=== PATIENT | female | born 1960 | race Caucasian/White ===

== ENCOUNTER 2017-11-02 13:01 | Emergency (ER) | payer BC ==
[~2017-11-02] VITALS: Ht 160 cm; Wt 81.7 kg
[2017-11-02] MEDS ORDERED: Prozac20 MG (13:43)
[2017-11-02] MEDS ORDERED: QVAR REDIHALE10.6 G1 (13:44)
[2017-11-02] MEDS ORDERED: ALBU90OI6 INH (13:44)
[2017-11-02] MEDS ORDERED: ACYC200 PO (13:44)
[2017-11-02] MEDS ORDERED: METPHE5 PO (13:45)
[2017-11-02] MEDS ORDERED: LIDO700A20 TOP (14:20)
[2017-11-02] MEDS ORDERED: METPRE4DP PO (14:20)
[2017-11-02] MEDS ORDERED: Pepcid20 MG PO (14:20)
[2017-11-02] MEDS ORDERED: Percocet 5-3251 EACH PO (14:25)
== END 2017-11-02 14:27 | disposition home or self-care (01) ==
LOC: ER 13:01
DX: G89.29 Other chronic pain (principal); M54.5 Low back pain; Z88.2 Allergy status to sulfonamides; Z88.5 Allergy status to narcotic agent; Z91.040 Latex allergy status; Z91.09 Other allergy status, other than to drugs and biological substances; Z79.899 Other long term (current) drug therapy; Z79.51 Long term (current) use of inhaled steroids
CPT/HCPCS: 96372; 99283; J1885

== ENCOUNTER → 2018-05-30 | Outpatient (CLI) | payer OTHER, BC ==
[~2018-05-30] MED LIST: ACYC200 PO; ALBU90OI6 INH; LIDO700A20 TOP; METPHE5 PO; METPRE4DP PO; Pepcid20 MG PO; Percocet 5-3251 EACH PO; Prozac20 MG; QVAR REDIHALE10.6 G1
== END | disposition home or self-care (01) ==
LOC: LAB 14:25 → LAB SHORT 14:25
DX: N39.0 Urinary tract infection, site not specified (principal)
CPT/HCPCS: 87086

== ENCOUNTER 2020-04-16 00:50 | Emergency (ER) | payer OTHER, BC ==
[~2020-04-16] VITALS: Ht 160 cm; Wt 88.5 kg
[2020-04-16] MEDS ORDERED: ARIP10 PO (01:33)
[2020-04-16] MEDS ORDERED: HYDPAM50 (01:33)
== END 2020-04-16 05:02 | disposition home or self-care (01) ==
LOC: ER 00:50
DX: S63.112A Subluxation of metacarpophalangeal joint of left thumb, initial encounter (principal); Z88.2 Allergy status to sulfonamides; Z88.5 Allergy status to narcotic agent; Z91.041 Radiographic dye allergy status; Z91.040 Latex allergy status; Z79.899 Other long term (current) drug therapy; X58.XXXA Exposure to other specified factors, initial encounter
CPT/HCPCS: 73130; 73200; 99284-25

== ENCOUNTER → 2021-06-11 | Outpatient (CLI) | payer OTHER, BC ==
[~2021-06-11] MED LIST changes: +ARIP10 PO; +HYDPAM50
== END | disposition home or self-care (01) ==
LOC: LAB SHORT 14:16 → LAB 14:16
DX: R30.0 Dysuria (principal)
CPT/HCPCS: 87086

== ENCOUNTER 2021-07-03 11:25 | Emergency (ER) | payer OTHER, BC ==
[~2021-07-03] VITALS: Ht 160 cm; Wt 100.7 kg
[2021-07-03 12:17] LABS: BASOPHILS ABSOLUTE AUTO 0.04 K/mm3 (0.00-0.23); BASOPHILS PERCENT AUTO 0 % (0-2); EOSINOPHILS PERCENT AUTO 1 % (0-6); Hematocrit 41.8 % (33.0-51.0); Hemoglobin 13.6 g/dL (11.5-16.0); IMMATURE GRAN ABSOLUTE AUTO 0.03 K/mm3 (0.00-0.10); IMMATURE GRAN PERCENT AUTO 0 % (0-1); LYMPHOCYTES ABSOLUTE AUTO 1.26 K/mm3 (0.84-5.20); LYMPHOCYTES PERCENT AUTO 13 % (21-46); MONOCYTES ABSOLUTE AUTO 0.51 K/mm3 (0.16-1.47); MONOCYTES PERCENT AUTO 5 % (4-13); Mean Corpuscular HGB 30.9 pg (26.0-34.0); Mean Corpuscular HGB Conc 32.5 g/dL (31.5-36.5); Mean Corpuscular Volume 95 fL (80-100); NEUTROPHILS ABSOLUTE AUTO 7.65 K/mm3 (1.96-9.15); NEUTROPHILS PERCENT AUTO 80 % (41-73); Platelet Count 363 K/mm3 (150-400); RDW Coefficient Variation 13.3 % (11.7-14.2); White Blood Cell Count 9.59 K/mm3 (4.00-11.30)
[2021-07-03 12:37] LABS: Albumin, Blood 3.4 g/dL (3.4-5.0); Albumin/Globulin Ratio 0.9 (0.8-1.8); Bilirubin, Total 0.3 mg/dL (0.1-1.0); Calcium, Blood 9.3 mg/dL (8.5-10.1); Creatinine, Blood 0.75 mg/dL (0.40-1.00); Globulin, Blood 3.7 g/dL (2.2-4.0); Potassium, Blood 3.9 mmol/L (3.5-5.5); Total Protein, Blood 7.1 g/dL (6.4-8.2)
== END 2021-07-03 16:20 | disposition home or self-care (01) ==
LOC: ER 11:25
PROVIDERS: Physician Assistant
DX: R07.9 Chest pain, unspecified (principal); R11.2 Nausea with vomiting, unspecified; J45.909 Unspecified asthma, uncomplicated; Z88.2 Allergy status to sulfonamides; Z91.040 Latex allergy status; Z88.5 Allergy status to narcotic agent; Z79.899 Other long term (current) drug therapy
CPT/HCPCS: 36415; 71045; 80053; 83690; 84484; 85025; 93005; 93010; 99285-25

== ENCOUNTER → 2021-09-13 | Outpatient (CLI) | payer OTHER, BC | END | disposition home or self-care (01) | LOC: LAB 15:14 → LAB SHORT 15:14 | DX: R30.0 Dysuria (principal) | CPT/HCPCS: 87077; 87086; 87186 ==

== ENCOUNTER → 2021-11-23 | Outpatient (CLI) | payer OTHER, BC ==
[2021-11-24 19:28] LABS: Adenovirus F 40/41 Not Detected (NOT DETECT); Astrovirus Not Detected (NOT DETECT); Campylobacter Sp Not Detected (NOT DETECT); Cryptosporidium Not Detected (NOT DETECT); Cyclospora Cayetanensis Not Detected (NOT DETECT); E. Coli O157 Not Detected (NOT DETECT); Entamoeba Histolytica Not Detected (NOT DETECT); Enteroaggregative E. coli-EAEC Not Detected (NOT DETECT); Enteropathogenic E. coli-EPEC Not Detected (NOT DETECT); Enterotoxigenic E. coli-ETEC Not Detected (NOT DETECT); Giardia Lamblia Not Detected (NOT DETECT); Norovirus GI/GII Not Detected (NOT DETECT); Plesiomonas Shigelloides Not Detected (NOT DETECT); Rotavirus A Not Detected (NOT DETECT); Salmonella Sp Not Detected (NOT DETECT); Sapovirus Not Detected (NOT DETECT); Shiga Toxin-prod E. coli-STEC Not Detected (NOT DETECT); Shigella/Enteroin E. coli-EIEC Not Detected (NOT DETECT); Vibrio Cholerae Not Detected (NOT DETECT); Vibrio Sp Not Detected (NOT DETECT); Yersinia Enterocolitica Not Detected (NOT DETECT)
== END ==
LOC: LAB 23:25 → LAB SHORT 23:25
PROVIDERS: Nurse Practitioner Family
DX: R19.7 Diarrhea, unspecified (principal); R53.83 Other fatigue; R10.9 Unspecified abdominal pain; R41.3 Other amnesia
CPT/HCPCS: 87507

== ENCOUNTER → 2022-02-06 | Outpatient (CLI) | payer OTHER, BC | END | disposition home or self-care (01) | LOC: LAB SHORT 14:45 | DX: R35.0 Frequency of micturition (principal); R53.82 Chronic fatigue, unspecified | CPT/HCPCS: 87077; 87086; 87186 ==

== ENCOUNTER → 2022-03-13 | Outpatient (CLI) | payer OTHER, BC | LOC: LAB 13:39 → LAB SHORT 13:39 | DX: N39.0 Urinary tract infection, site not specified (principal) | CPT/HCPCS: 87086 ==

== ENCOUNTER → 2023-12-17 | Outpatient (CLI) | payer OTHER, BC ==
[~2023-12-17] MED LIST changes: +AZIT250 PO; +ESCI10 PO; +ESCI20 PO; +ESTRADIOL42.5 GM VAG; +HYDR1TAB94 PO; +PROP10 PO; +Prednisone10 MG PO; +TRAM50 PO; +Tessalon200 MG PO; +[UNRECOGNIZED DRUG - CODE] PO
== END ==
LOC: LAB SHORT 16:20 → LAB 16:20
DX: N39.0 Urinary tract infection, site not specified (principal)
CPT/HCPCS: 87077; 87086; 87186

== ENCOUNTER → 2024-01-14 | Outpatient (CLI) | payer OTHER, BC | END | disposition home or self-care (01) | LOC: LAB 15:51 → LAB SHORT 15:51 | DX: N39.0 Urinary tract infection, site not specified (principal) | CPT/HCPCS: 87086 ==

== ENCOUNTER → 2024-03-01 | Outpatient (CLI) | payer OTHER | END | disposition home or self-care (01) | LOC: LAB 14:30 → LAB SHORT 14:30 | DX: N39.0 Urinary tract infection, site not specified (principal) | CPT/HCPCS: 87077; 87086; 87186 ==

== ENCOUNTER → 2024-03-12 | Outpatient (CLI) | payer OTHER | END | disposition home or self-care (01) | LOC: LAB SHORT 15:39 → LAB 15:39 | DX: N39.0 Urinary tract infection, site not specified (principal) | CPT/HCPCS: 87077; 87086; 87186 ==

== ENCOUNTER → 2024-08-23 | Outpatient (CLI) | payer OTHER ==
[~2024-08-23] MED LIST changes: +ALBU8HFA2 INH; +ARIPIPRAZOLE2 M1 PO; +CYCLOBENZAPR; +FLONASE ALLERG9.9 ML; +GABA300; +QVAR REDIHALE10.6 G3 IH
[2024-08-27 05:12] LABS: B PERTUSSIS/PARAPERTUSS SOURCE Not Provided; BORD PARAPERTUSSIS BY PCR Not Detected; BORDETELLA PERTUSSIS BY PCR Not Detected
== END | disposition home or self-care (01) ==
LOC: LAB 11:22 → LAB SHORT 11:22
PROVIDERS: Registered Nurse
DX: Z20.818 Contact with and (suspected) exposure to other bacterial communicable diseases (principal)
CPT/HCPCS: 87798

== ENCOUNTER → 2024-09-09 | Outpatient (CLI) | payer OTHER | LOC: LAB 17:06 → LAB SHORT 17:06 | DX: R35.0 Frequency of micturition (principal); R30.0 Dysuria; N39.0 Urinary tract infection, site not specified | CPT/HCPCS: 87077; 87086; 87186 ==

== ENCOUNTER → 2024-10-30 | Outpatient (CLI) | payer OTHER | LOC: LAB SHORT 10:00 → LAB 10:00 | DX: N39.0 Urinary tract infection, site not specified (principal); R30.0 Dysuria | CPT/HCPCS: 87077; 87086; 87186 ==

== ENCOUNTER → 2024-12-17 | Outpatient (CLI) | payer OTHER | LOC: LAB 13:46 → LAB SHORT 13:46 | DX: N39.0 Urinary tract infection, site not specified (principal) | CPT/HCPCS: 87077; 87086; 87186 ==

== ENCOUNTER → 2025-01-25 | Outpatient (CLI) | payer OTHER ==
[~2025-01-25] MED LIST changes: -ACYC200 PO; +ACYC800 PO; +Acetaminophen325 M1 PO; +Cyclobenzaprine5 MG PO; +FURO20 PO; +HYDROCODONE-AC1 EAC7 PO; +METPHE20 PO; -METPHE5 PO; +NITR100CA PO; +POTA10T PO; +PREG100 PO
== END | disposition home or self-care (01) ==
LOC: LAB SHORT 17:25 → LAB 17:25 → LAB SHORT 01-26 16:13
DX: N39.0 Urinary tract infection, site not specified (principal)
CPT/HCPCS: 87077; 87086; 87186

== ENCOUNTER 2025-02-15 11:42 | Day surgery (SDC) | payer OTHER ==
[2025-02-15] VITALS (18 sets, daily range): BP systolic 100–128; BP diastolic 52–79
[~2025-02-15] VITALS: Ht 157.5 cm; Wt 109.9 kg
[~2025-02-15 11:42] MED LIST changes: +Chlorhexidine Mouth Care 15 ML UDC MT SCH; +Clindamycin 900mg in D5W 50ML 50 ML IV SCH; +FentaNYL Citrate 50 MCG/ML 2 ML Injection ONE; +Ropivacaine 0.5% HCl/Pf 123.125 MG,EPINEPHrine HCL 0.25 MG,Ketorolac Tromethamine 15 MG... INFIL SCH; +Tranexamic Acid 100 ML IV SCH
--- NOTE | 2025-02-15 12:43 | NUR ---
Ambulatory in Day SurgeryPre-Op teaching done. Pt verbalizes understanding. History, Chart, Medications and Allergies reviewed before start of procedure.Patient confirms NPO status and agrees with scheduled surgery. Patient reports completing Chlorhexadine shower X2 prior to admission to hospital.
[2025-02-15] MEDS ORDERED: ALBU8HFA2 INH (13:06)
[2025-02-15] MEDS ORDERED: FLONASE ALLERG9.9 ML (13:07)
[2025-02-15] MEDS ORDERED: Albuterol HFA200 ACT/6.7 GM INH INH PRN (13:50)
[2025-02-15] MEDS ORDERED: Magnesium Hydroxide Conc 10 ML UDC PO PRN (13:55)
[2025-02-15] MEDS ORDERED: Metoclopramide HCl 5MG / ML 2ML Vial IV PRN (13:55)
[2025-02-15] MEDS ORDERED: FLU VACC TS2025-26(6MOS UP)/PF 45 MCG/0.5 ML SYRINGE IM SCH (13:55)
[2025-02-15] MEDS ORDERED: Ondansetron HCl 2 MG / ML 2ML Vial IV PRN (13:55)
[2025-02-15] MEDS ORDERED: HYDROmorphone HCl/Pf 1MG SYR IV PRN ×2 (13:55→16:30)
--- NOTE | 2025-02-15 14:11 | NUR ---
PT'S GLASSES GIVEN TO . BILATERAL HEARING AIDS REMAIN IN
[2025-02-15] MEDS ORDERED: Midazolam HCl 1MG / ML 2ML Vial ONE (14:31)
[2025-02-15] MEDS ORDERED: Ondansetron HCl 2 MG / ML 2ML Vial ONE (14:58)
[2025-02-15] MEDS ORDERED: Dexamethasone Sod Phos 10 MG/ML 1ML VIAL ONE (14:58)
--- NOTE | 2025-02-15 15:18 | NUR ---
02/15/25 1518 Araseli,Jenna SPINAL BLOCK COMPLETED BY UPON ENTRY TO OR.
[2025-02-15] MEDS ORDERED: Prochlorperazine Edisylate 10 mg Vial IV PRN (16:30)
[2025-02-15] MEDS ORDERED: FentaNYL Citrate 50 MCG/ML 2 ML Injection IV PRN ×3 (16:30)
[2025-02-15] MEDS ORDERED: Ketorolac Tromethamine 30mg Vial ONE (17:09)
--- NOTE | 2025-02-15 17:57 | NUR ---
PT ARRIVED TO UNIT FROM PACU. TRANSFERRED FROM [facility] TO BED. PT ABLE TO FEEL PRESSURE FROM TOES TO HIPS BUT HAS DECREASED SENSATION. ABLE TO WIGGLE TOES. DRESSING TO L TKA CDI. POLAR PACK AND SCD'S IN PLACE. VSS. CALL LIGHT IN REACH. PT HAS HX OF INCONTINENCE, PUREWICK PLACED WHILE PT NOT GETTING OOB.
[2025-02-15] MEDS ORDERED: Ketorolac Tromethamine 15mg Vial IV SCH (18:00)
[2025-02-15] MEDS ORDERED: Clindamycin 900mg in D5W 50ML 50 ML IV SCH (22:45)
--- NOTE | 2025-02-16 03:54 | NUR ---
SHIFT SUMMARY POD 1 S/P LEFT TKA. DRESSING & KHANH WRAP CDI, WITH COMPRESSION STOCKINGS, SCDS AND POLAR PACK IN PLACE. PT IS A/OX4 AND ABLE TO MAKE NEEDS KNOWN. REPORTS MIN. PAIN MANAGED PER EMAR. ABX INFUSED PER EMAR. SBA X 1-2 WITH FWW, GB TO BATHROOM. PT IS VOIDING AND PREMA PO. IV PATENT/SL. PLAN TO WORK WITH THERAPY AND POSSIBLE D/C HOME TODAY. PT CURRENTLY RESTING IN BED WITH EYES CLOSED, RESP EVEN AND HAS CALL LIGHT IN REACH. WILL GIVE REPORT TO ONCOMING RN.
[2025-02-16 04:25] VITALS: BP 109/63
[2025-02-16 04:43] LABS: BASOPHILS ABSOLUTE AUTO 0.01 K/mm3 (0.00-0.23); BASOPHILS PERCENT AUTO 0 % (0-2); EOSINOPHILS ABSOLUTE AUTO 0.00 K/mm3 (0.00-0.68); EOSINOPHILS PERCENT AUTO 0 % (0-6); Hematocrit 30.5 % (33.0-51.0); Hemoglobin 9.7 g/dL (11.5-16.0); IMMATURE GRAN ABSOLUTE AUTO 0.03 K/mm3 (0.00-0.10); IMMATURE GRAN PERCENT AUTO 0 % (0-1); LYMPHOCYTES ABSOLUTE AUTO 0.69 K/mm3 (0.84-5.20); LYMPHOCYTES PERCENT AUTO 7 % (21-46); MONOCYTES ABSOLUTE AUTO 0.55 K/mm3 (0.16-1.47); MONOCYTES PERCENT AUTO 6 % (4-13); Mean Corpuscular HGB Conc 31.8 g/dL (31.5-36.5); Mean Corpuscular Volume 88 fL (80-100); NEUTROPHILS ABSOLUTE AUTO 8.74 K/mm3 (1.96-9.15); NEUTROPHILS PERCENT AUTO 87 % (41-73); NRBC ABSOLUTE 0.00 K/mm3 (0.00-0.02); NRBC Auto 0.0 /100 WBC (0.0-0.2); Platelet Count 328 K/mm3 (150-400); RDW Coefficient Variation 15.1 % (11.7-14.2); RDW Standard Deviation 48.9 fL (35.1-46.3)
[2025-02-16 05:09] LABS: Anion Gap 8.0 mmol/L (3-11); Blood Urea Nitrogen 26.0 mg/dL (8-24); CO2, Blood 29.0 mmol/L (21-32); Calcium, Blood 8.6 mg/dL (8.5-10.1); Chloride, Blood 105.0 mmol/L (98-108); Creatinine, Blood 0.91 mg/dL (0.40-1.00); Glucose, Blood 204.0 mg/dL (70-99); Potassium, Blood 4.6 mmol/L (3.5-5.5); Sodium, Blood 137.0 mmol/L (136-145)
[2025-02-16 07:48] VITALS: BP 98/53
[2025-02-16] MEDS ORDERED: Potassium Chloride 10 Meq Tablet SA PO SCH (09:00)
[2025-02-16] MEDS ORDERED: Fluticasone 0.05% Nasal Spray PRN (09:00)
[2025-02-16] MEDS ORDERED: ELIQUIS2.5 MG PO (09:54)
--- NOTE | 2025-02-16 11:03 | NUR ---
DISCHARGE NOTE: PATIENT DISCHARGED AT 1055. DISCHARGE INFO GONE OVER WITH PATIENT AND PATIENT'S . INFORMATION GONE OVER ABOUT PATIENT'S MEDS, WARNING SIGNS, WHEN TO CALL MD AND SEEK EMERGENT CARE, POST OP CARE, PATIENT AND PATIENT'S VERBALIZED UNDERSTANDING. PATIENT STABLE AT DC, PAIN WELL CONTROLLED, DRESSING C/D/I, TELFA AND TEGADERM. PATIENT IV OUT. PATIENT LEFT WITH ALL BELONGINGS. LEFT UNIT SAFELY VIA WHEELCHAIR WITH RAÚL GARCIA, TO 'S PRIVATE VEHICLE TO HOME.
== END 2025-02-16 10:55 | disposition home or self-care (01) ==
LOC: ORSCMMR 11:42 → ORD 13:00 → ORSCMMR 13:00 → SURS 17:09 → ORSCMMR 02-16 10:55
PROVIDERS: Orthopaedic Surgery
PROC: 0SRD0JA Replacement of Left Knee Joint with Synthetic Substitute, Uncemented, Open Approach (ICD-10-PCS; principal; 2025-02-15 12:30)
DX: M17.12 Unilateral primary osteoarthritis, left knee (principal); J45.909 Unspecified asthma, uncomplicated; E66.01 Morbid (severe) obesity due to excess calories; Z68.41 Body mass index [BMI] 40.0-44.9, adult; Z79.899 Other long term (current) drug therapy
CPT/HCPCS: 36415; 73560-LT; 80048; 85025; 97110; 97116; 97161; 97530; A9270; C1776; J0166; J0735; J1100; J1885; J2250; J2405; J2704; J2795; J3010; J7120